=== PATIENT | male | born 1995 | race Caucasian/White ===

== ENCOUNTER 2017-04-10 23:26 | Emergency (ER) | payer OTHER ==
[~2017-04-10] VITALS: Ht 175.3 cm; Wt 70.0 kg
[~2017-04-10 23:26] MED LIST: ZOFR4TAB3 SL
[2017-04-10 23:38] VITALS: BP 123/85; PULSE 72; RESP 18; TEMP 98.4; O2SAT 98
--- NOTE | 2017-04-10 23:58 | PD ---
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 He denies any swelling. He denies any giving away or locking. His only pain is on the medial joint line. He denies any other pain. PFSH Past Medical History ?: Not Social History Alcohol Use: No Tobacco Use: No Substance Use: No Allergies-Medications (Allergen,Severity, Reaction): Coded Allergies: No Known Allergies (Unverified , 07/20/16) Reported Meds & Prescriptions Reported Meds & Active Scripts Active Review of Systems Except as stated in HPI: all other systems reviewed are Neg Physical Exam Narrative GENERAL: Well-nourished, well-developed patient in slight apparent distress with his left knee pain. His vital signs are normal. SKIN: Focused skin assessment warm/dry. HEAD: Normocephalic. EYES: No scleral icterus. No injection or drainage. NECK: Supple, trachea midline. No JVD or lymphadenopathy. CARDIOVASCULAR: Regular rate and rhythm without murmurs, gallops, or rubs. RESPIRATORY: Breath sounds equal bilaterally. No accessory muscle use. GASTROINTESTINAL: Abdomen soft, non-tender, nondistended. MUSCULOSKELETAL: No cyanosis, or edema. Collaterals, drawer, Kendell normal. There is medial joint line tenderness present. No erythema or swelling is noted. BACK: Nontender without obvious deformity. No CVA tenderness. Data Data Last Documented VS Vital Signs Date Time Temp Pulse Resp B/P Pulse Ox O2 Delivery O2 Flow Rate FiO2 04/10/17 23:38 98.4 72 18 123/85 98 Orders Knee, Complete (4vws) (04/10/17 23:57) [facility] Medical Decision Making Medical Screen Exam Complete: Yes Emergency Medical Condition: Yes Medical Record Reviewed: Yes Interpretation(s) X-rays of the left knee are normal. Differential Diagnosis Torn left medial meniscus, torn knee ligament, fracture knee, contusion knee Narrative Course The patient may have a torn medial meniscus. He will be given crutches and light work and told to follow-up with an orthopedic physician, he cannot go to full duty until cleared by an orthopedic physician. Diagnosis Primary Impression: Left medial knee pain Additional Instructions: No weightbearing on the left knee until cleared by orthopedic physician. Light duty is intended for minimal walking, walking only on level ground and no running. Use of crutches is recommended most of the time. Take the Motrin regularly, 1 tablet 3 times daily to establish high anti-inflammatory levels. Use the knee brace that you have at home. Med/Other Pt SpecificInfo: Prescription(s) given Scripts Ibuprofen 800 Mg [id number] Mg PO TID #33 TAB Ref 0 Prov:Irwin Rayo MD 04/11/17 Disposition: 01 DISCHARGE HOME Condition: Stable Irwin Rayo MD Apr 10, 2017 23:58
--- NOTE | 2017-04-11 00:45 | RADRPT ---
EXAM DATE/TIME: 04/11/2017 00:10 [place] COMPARISON: No previous studies available for comparison. INDICATIONS : Medial left knee pain. MEDICAL HISTORY : None. SURGICAL HISTORY : None. ENCOUNTER: Initial ACUITY: 1 day PAIN SCORE: 8/10 LOCATION: Left Knee FINDINGS: Four view examination of the left knee demonstrates no evidence of fracture or dislocation. Bony min eralization is normal. The articular surfaces are intact. The suprapatellar soft tissues have a nor mal configuration. CONCLUSION: Unremarkable examination of the left knee. Al Ragsdale MD on April 11, 2017 at 0:43 Board Certified Radiologist. This report was verified electronically.
[2017-04-11] MEDS ORDERED: IBUP800T23 PO (00:52)
[2017-04-11 01:05] VITALS: BP 128/72
== END 2017-04-11 01:35 | disposition home or self-care (01) ==
LOC: PHED 23:26
DX: M25.562 Pain in left knee (principal); X50.1XXA Overexertion from prolonged static or awkward postures, initial encounter; Y93.89 Activity, other specified; Y92.89 Other specified places as the place of occurrence of the external cause; Y99.0 Civilian activity done for income or pay
CPT/HCPCS: 73564; 99283